=== PATIENT | male | born 1945 | race Caucasian/White ===

== ENCOUNTER 2022-11-03 12:49 | Emergency (ER) | payer OTHER ==
[2022-11-03] VITALS (24 sets, daily range): BP systolic 87–133; BP diastolic 43–98
[~2022-11-03] VITALS: Ht 165.1 cm; Wt 97.0 kg
[~2022-11-03 12:49] MED LIST: TRIAMCINOLON0.13 EX
[2022-11-03] MEDS ORDERED: ZOLOFT100 MG PO (13:11)
[2022-11-03] MEDS ORDERED: SEROQUEL XR200 MG PO (13:13)
[2022-11-03] MEDS ORDERED: ALLOPURINOL200 MG (13:14)
[2022-11-03] MEDS ORDERED: ACYCLOVIR400 MG PO (13:14)
[2022-11-03] MEDS ORDERED: [UNRECOGNIZED DRUG - OTHER] (13:15)
[2022-11-03 14:23] LABS: BASO% 0.6 % (0-3); EOS% 0.6 % (0-8); HEMATOCRIT 26.7 % (39.0-50.0); HEMOGLOBIN 8.6 g/dl (14.0-18.0); IMMATURE GRANULOCYTES 0.6 % (0.0-5.0); LYMPH% 73.5 % (15-41); MEAN CORPUSCULAR HGB 28.7 pG CALC (26.0-32.0); MEAN CORPUSCULAR HGB CONC 32.2 g/dL CAL (32.0-36.0); MONO% 13.3 % (2-13); NEUT# 0.19 thou/uL (1.82-7.42); NEUT% 11.4 % (42-76); RED CELL DISTRI WIDTH 22.2 % (11.5-15.5)
[2022-11-03 14:26] LABS: ALBUMIN 4.3 g/dL (3.2-5.0); ALKALINE PHOSPHATASE 75 u/l (38-126); ANION GAP 13 (6-22 (CALC)); BILIRUBIN, TOTAL 1.5 mg/dL (0.2-1.3); BUN 16 mg/dL (8-23); BUN/CREATININE RATIO 21 (12-20 (CALC)); CARBON DIOXIDE 23 mmol/l (22-30); CHLORIDE 105 mmol/l (95-108); CREATININE 0.8 mg/dL (0.7-1.3); GFR FOR AFR.AMER. > 60 ML/MIN (>=60 (CALC)); GFR OTHER RACES > 60 ML/MIN (>=60 (CALC)); POTASSIUM 4.2 mmol/l (3.5-5.1); SGOT/AST 47 u/l (19-48); SODIUM 138 mmol/l (137-146); TOTAL PROTEIN 7.9 g/dL (6.3-8.2)
== END 2022-11-03 18:50 | disposition home or self-care (01) | DRG 813 ==
LOC: ED 12:49
PROVIDERS: Nurse Practitioner
PROC: 30233R1 Transfusion of Nonautologous Platelets into Peripheral Vein, Percutaneous Approach (ICD-10-PCS; principal; 2022-11-03)
DX: D69.6 Thrombocytopenia, unspecified (principal); D70.9 Neutropenia, unspecified; C95.90 Leukemia, unspecified not having achieved remission
CPT/HCPCS: P9034

== ENCOUNTER 2023-04-22 10:18 | Emergency (ER) | payer OTHER ==
[~2023-04-22] VITALS: Ht 165.1 cm; Wt 82.0 kg
[2023-04-22] VITALS (37 sets, daily range): BP systolic 123–186; BP diastolic 38–90
[~2023-04-22 10:18] MED LIST changes: +ACYCLOVIR400 MG PO; +ALLOPURINOL200 MG; +LEVOFLOXACIN500MG PO; +SEROQUEL XR200 MG PO; +VORICONAZOLE200 MG PO; +ZOFRAN4 MG/TAB PO; +ZOLOFT100 MG PO; +ZYRTEC10 MG PO; +[UNRECOGNIZED DRUG - OTHER]
[2023-04-22 11:56] LABS: HEMATOCRIT 22.7 % (39.0-50.0); HEMOGLOBIN 7.4 g/dl (14.0-18.0); MEAN CELL VOLUME 89.4 fL CALC (80.0-100.0); MEAN CORPUSCULAR HGB 29.1 pG CALC (26.0-32.0); MEAN CORPUSCULAR HGB CONC 32.6 g/dL CAL (32.0-36.0); RED BLOOD COUNT 2.54 mill/uL (4.70-6.10); RED CELL DISTRI WIDTH 15.4 % (11.5-15.5)
[2023-04-22 11:57] LABS: IMMATURE GRANULOCYTES 12.2 % (0.0-5.0); MANUAL DIFFERENTIAL YES; PLATELET COUNT 7 thou/uL (130-400)
[2023-04-22 11:58] LABS: ALBUMIN 4.2 g/dL (3.2-5.0); ALKALINE PHOSPHATASE 105 u/l (38-126); BILIRUBIN, TOTAL 1.1 mg/dL (0.2-1.3); BUN 19 mg/dL (8-23); BUN/CREATININE RATIO 34 (12-20 (CALC)); CHLORIDE 103 mmol/l (95-108); CREATININE 0.6 mg/dL (0.7-1.3); GFR FOR AFR.AMER. > 60 ML/MIN (>=60 (CALC)); GFR OTHER RACES > 60 ML/MIN (>=60 (CALC)); POTASSIUM 3.8 mmol/l (3.5-5.1); SGOT/AST 47 u/l (19-48); SODIUM 139 mmol/l (137-146)
[2023-04-22 12:02] LABS: ANION GAP 12 (6-22 (CALC)); CARBON DIOXIDE 28 mmol/l (22-30)
[2023-04-22] MEDS ORDERED: ONDANSETRON HCl 4 MG/2 ML SDV IV ONE ×2 (12:20→17:15)
[2023-04-22] MEDS ORDERED: SODIUM CHLORIDE 0.9% 1,000 ML IV ONE ×3 (12:20→17:15)
[2023-04-22] MEDS ORDERED: HYDROmorphone HCL 2 MG/AMP IV ONE ×2 (12:45→17:00)
[2023-04-22] MEDS ORDERED: Pantoprazole Sodium 40 MG VIAL (Protonix) IV ONE ×2 (13:40→14:25)
[2023-04-22] MEDS ORDERED: SODIUM CHLORIDE 0.9% 500 ML IV ONE (13:40)
[2023-04-22 14:00] LABS: BAND 1 % (0-8); C-REACTIVE PROTEIN 14.7 mg/dL (0-0.9)
[2023-04-22 14:01] LABS: IMMATURE CELLS 87 %; NUCLEATED RED BLOOD CELL 3 /100WBC (0-1)
[2023-04-22 14:05] LABS: ANISOCYTOSIS FEW; OVALOCYTES FEW; PLATELET ESTIMATE MARKED DECREASE; POIKILOCYTOSIS FEW; TEAR DROP CELLS FEW
[2023-04-22] MEDS ORDERED: FAMOTIDINE 10MG/ML 2ML SDV IV ONE (14:30)
[2023-04-22] MEDS ORDERED: OCTREOTIDE ACETATE 100 MCG/VIAL SDV IV ONE (15:00)
== END 2023-04-22 19:34 | DRG 378 ==
LOC: ED 10:18
PROVIDERS: Emergency Medicine; Nurse Practitioner
PROC: 30233R1 Transfusion of Nonautologous Platelets into Peripheral Vein, Percutaneous Approach (ICD-10-PCS; principal; 2023-04-22)
PROC: 30233N1 Transfusion of Nonautologous Red Blood Cells into Peripheral Vein, Percutaneous Approach (ICD-10-PCS; 2023-04-22)
DX: K92.0 Hematemesis (principal); C92.50 Acute myelomonocytic leukemia, not having achieved remission; D64.9 Anemia, unspecified; D69.6 Thrombocytopenia, unspecified; Z20.822 Contact with and (suspected) exposure to COVID-19
CPT/HCPCS: J2354; P9034; P9058; S0164